=== PATIENT | female | born 1945 | race African-American/Black ===

== ENCOUNTER 2024-07-19 13:09 | Emergency (ER) | payer MEDICARE, MEDICAID ==
[2024-07-19 13:51] LABS: Actual Bicarbonate (HCO3v) 22.3 mEq/L (22-28); Analyzer IN Cardio CS ER; Base Excess -1.6 mEq/L (-2 - +2); Calcium, Ionized (venous) 1.04 mmol/L (1.16-1.32); Chloride (VBG) 96 mmol/L (98-106); Critical Notified Whom: BEAMY; Hematocrit-VBG 40 % (36.0-47.0); Hemoglobin (Hb) 13.7 g/dL (11.7-16.1); Potassium (VBG) 4.57 mmol/L (3.70-5.30); Puncture Site Other Site; RapidComm Collect By CBN; Sodium 135 mmol/L (133-146)
[2024-07-19 14:10] LABS: INR-International Normal Ratio 1.3; PTT 32.1 sec (22.0-33.0); Prothrombin Time 14.3 sec (9.5-12.1)
[2024-07-19 14:30] LABS: Hemoglobin 13.6 g/dL (12.0-15.5); Mean Corpuscular Hemoglobin 30.2 pg (27.0-33.0); Mean Corpuscular Volume 88.7 fL (81.6-98.3); Platelet Count 81 10x3/uL (150-450); RBC Distribution Width 14.1 % (11.5-14.5); Red Blood Cell (RBC) Count 4.51 10x6/uL (3.90-5.03); White Blood Cell (WBC) Count 30.9 10x3/uL (3.5-10.5)
[2024-07-19 14:34] LABS: ALT (SGPT) 158 U/L (8-55); AST (SGOT) 462 U/L (5-34); Acetaminophen Less than 10 mcg/mL (Less than 10); Albumin 2.4 g/dL (3.4-4.8); Alcohol Less than 10.0 mg/dL (Less than 10); Alkaline Phosphatase 201 U/L (40-110); Anion Gap 22 mmol/L (10-20); BUN (Urea Nitrogen) 57 mg/dL (9.8-20.1); Bilirubin, Total 6.4 mg/dL (0.2-1.2); Calc. Creatinine Clearance 0 mL/min (70-130); Calcium 8.2 mg/dL (7.8-10.44); Carbon Dioxide 20 mmol/L (23-31); Chloride 98 mmol/L (98-107); Estimated GFR 8; Globulin 3.3 g/dL (2.4-3.5); Glucose 77 mg/dL (83-110); Lipase 16 U/L (8-78); Potassium 4.6 mmol/L (3.5-5.1); Protein, Total 5.7 g/dL (5.8-8.1); Salicylate Less than 8.0 mg/dL (Less than 8.0); Sodium 135 mmol/L (136-145)
[2024-07-19 14:35] LABS: MDiff Complete? YES
[2024-07-19] MEDS ORDERED: cefTRIAXone (ROCEPHIN) 2 GM VIAL ONE (14:37)
[2024-07-19] MEDS ORDERED: Cefepime 2 GM VIAL ONE (14:43)
[2024-07-19 14:52] LABS: Troponin I 0.432 ng/mL (< 0.028)
[2024-07-19 14:57] LABS: Band 9 % (5-11); Lymphocytes 4 % (21-51); Metamyelocyte 1 % (0-0); Monocytes 7 % (0-10); Neutrophil 79 % (42-75)
[2024-07-19 14:59] LABS: Large Platelets SLIGHT (None Seen); Platelet Adequacy Comment Appears Decreased; RBC Morph Comment Within Normal Limits; Vacuoles MODERATE
[2024-07-19] MEDS ORDERED: VANCOMYCIN 2 GRAM/400 ML BAG 2 GM in Premix 1 BAG IVPB SCH (15:00)
[2024-07-19 16:15] LABS: Bilirubin 6 (Negative); Blood, Urine 250 (Negative); Glucose, Urine (Dipstick) Normal (Negative); Ketone, Urine 5 mg/dL (Negative); Leukocyte 500 (Negative); Nitrite Negative (Negative); Protein, Urine (Dipstick) 500 mg/dl (Neg-Trace); Specific Gravity, Urine 1.015 (1.005-1.030)
[2024-07-19 16:23] LABS: Amphetamine Not Detected (NotDetected); Barbiturates Screen Not Detected (NotDetected); Benzodiazepine Screen Not Detected (NotDetected); Cocaine Metabolite Screen Not Detected (NotDetected); Methadone Not Detected (NotDetected); Methamphetamine Not Detected (NotDetected); Opiate Screen Not Detected (NotDetected); Oxycodone Screen Not Detected (NotDetected); Phencyclidine (PCP) Not Detected (NotDetected); THC/Cannabinoid Screen Not Detected (NotDetected); Tricyclic Screen Not Detected (NotDetected)
[2024-07-19 16:45] LABS: Influenza A by NAA Not Detected (NotDetected); Influenza B by NAA Not Detected (NotDetected); SARS-CoV-2 NAA Rapid Test Not Detected (NotDetected)
[2024-07-19 16:58] LABS: Clarity Cloudy (Clear)
[2024-07-19 17:02] LABS: CAUTI Indications for Culture Alt mental st,lethar; RBC/HPF 21-50 HPF (0-3); Squamous Epithelial 0-3 HPF (0-3); Transitional Epithelial 0-3 HPF (None Seen); WBC/HPF Greater than 50 HPF (0-3)
[2024-07-19 17:03] LABS: Bacteria/HPF 3+ HPF (None Seen); Renal Epithelial 0-3 HPF (None Seen)
[2024-07-19 17:05] LABS: Broad Cast 0-3 LPF (None Seen); Waxy Cast 0-3 LPF (None Seen)
[2024-07-19 17:06] LABS: Urine Culture Reflex Yes Yes
[2024-07-19 17:56] LABS: Troponin I 0.461 ng/mL (< 0.028)
[2024-07-19 18:10] LABS: Anion Gap 18 mmol/L (10-20); BUN (Urea Nitrogen) 60 mg/dL (9.8-20.1); Bilirubin, Direct 4.6 mg/dL (0.1-0.3); Bilirubin, Total 5.8 mg/dL (0.2-1.2); Calc. Creatinine Clearance 0 mL/min (70-130); Calcium 8.1 mg/dL (7.8-10.44); Carbon Dioxide 21 mmol/L (23-31); Chloride 100 mmol/L (98-107); Estimated GFR 9; Glucose 72 mg/dL (83-110); Potassium 4.5 mmol/L (3.5-5.1); Sodium 134 mmol/L (136-145)
[2024-07-19] MEDS ORDERED: Albumin 25% 25 GM (100 mL) BOT IVPB SCH (18:30)
== END 2024-07-19 19:16 | disposition short-term general hospital (02) ==
LOC: CSHERS 13:09
DX: A41.9 Sepsis, unspecified organism (principal); N17.9 Acute kidney failure, unspecified; R41.82 Altered mental status, unspecified; E86.0 Dehydration; I10 Essential (primary) hypertension; R79.89 Other specified abnormal findings of blood chemistry
CPT/HCPCS: 0240U; 70450; 71045; 71250; 74177; 76705; 80048; 80053; 80306; 80307; 81001; 82247; 82805; 82962; 83605; 83690; 83880; 84484 ×2; 85025; 85610; 85730; 87040; 87077; 87086; 87149 ×2; 87186; 93005; J0692; J3370; P9047; 36415; 36416; 51701; 96361; 96365; 96366; 96367; 96375; J0696